=== PATIENT | female | born 1990 | race Caucasian/White ===

== ENCOUNTER 2016-08-13 16:30 | Outpatient (CLI) | payer MEDICAID ==
[~2016-08-13] VITALS: Ht 170.2 cm; Wt 102.5 kg
[~2016-08-13 16:30] MED LIST: AC500T PO; ACET-2222 PO; ALPR1TAB PO; AMOX500C2 PO; AZIT-21 PO; CODE-54 PO; CYCL10TA9 PO; DCS100C PO; DESV50TA PO; DIPH25TA82 PO; FOLI-88 PO; FRS325T PO; GUAI240S10 PO; IBUP-1773 PO; MNTL10T; MONT4TAB5; MULT-241 PO; NAPR-243 PO; PREN1TAB71 PO; ZLP5T PO
[2016-08-13 16:42] VITALS: BP 112/66
[2016-08-13] MEDS ORDERED: antibiotic PO (18:49)
--- NOTE | 2016-08-14 08:03 | Physician Query-Final Dx ---
MICHELA GIRALDO 08/14/16 8:03am: Clinic Account Progress/Dx Physician Query: Please give diagnosis Date of Service Aug 13, 2016 at 16:30 WARREN JIMENEZ DO 08/14/16 5:38pm: Clinic Account Progress/Dx DIAGNOSIS: Diagnosis threatened labor at term (38 weeks) MICHELA GIRALDO Aug 14, 2016 8:03 am WARREN JIMENEZ DO Aug 14, 2016 5:38 pm
[2016-08-17] MEDS ORDERED: FERR-74 PO (08:31)
[2016-08-17] MEDS ORDERED: PNV1TABL67 PO (08:31)
[2016-08-17] MEDS ORDERED: ACET1TAB43 PO (08:31)
[2016-08-17] MEDS ORDERED: IBUP-1773 PO (08:31)
== END 2016-08-13 18:55 | disposition home or self-care (01) ==
LOC: LDRP 16:30 → WSo 16:30
PROVIDERS: ATTEND Obstetrics & Gynecology
DX: O47.1 False labor at or after 37 completed weeks of gestation (principal); Z3A.38 38 weeks gestation of pregnancy
CPT/HCPCS: 99213

== ENCOUNTER 2016-08-14 08:18 | Outpatient (CLI) | payer MEDICAID ==
[~2016-08-14] VITALS: Ht 170.2 cm; Wt 102.5 kg
[~2016-08-14 08:18] MED LIST changes: +antibiotic PO
[2016-08-14 08:29] VITALS: BP 116/71
--- NOTE | 2016-08-15 12:14 | Physician Query-Final Dx ---
SALINA VELASCO 08/15/16 1214: Clinic Account Progress/Dx Physician Query: Please give diagnosis Date of Service Aug 14, 2016 at 08:18 SHIRLEY HACKETT MD 08/16/16 1850: Clinic Account Progress/Dx DIAGNOSIS: Diagnosis False labor, third trimester SALINA VELASCO Aug 15, 2016 12:14 SHIRLEY HACKETT MD Aug 16, 2016 18:50
[2016-08-17] MEDS ORDERED: IBUP-1773 PO ×2 (08:31)
[2016-08-17] MEDS ORDERED: FERR-74 PO ×2 (08:31)
[2016-08-17] MEDS ORDERED: ACET1TAB43 PO ×2 (08:31)
[2016-08-17] MEDS ORDERED: PNV1TABL67 PO ×2 (08:31)
== END 2016-08-14 09:00 | disposition home or self-care (01) ==
LOC: LDRP 08:18 → WSo 08:18
PROVIDERS: ATTEND Obstetrics & Gynecology
DX: O47.1 False labor at or after 37 completed weeks of gestation (principal); Z3A.38 38 weeks gestation of pregnancy
CPT/HCPCS: 99213

== ENCOUNTER 2016-08-15 16:31 | Inpatient (IN) | payer MEDICAID ==
[~2016-08-15] VITALS: Ht 170.2 cm; Wt 101.6 kg
[2016-08-15 16:45] VITALS: BP 126/72
[2016-08-15 17:05] LABS: BILIRUBIN,URINE NEGATIVE (NEGATIVE); KETONES,URINE NEGATIVE (NEGATIVE); LEUKOCYTE ESTERASE ,URINE 2+ (NEGATIVE); NITRITE,URINE NEGATIVE (NEGATIVE); PH,URINE 6 (5-9); PROTEIN,URINE NEGATIVE (NEGATIVE); UROBILINOGEN,URINE NORMAL (NORMAL)
[2016-08-15 17:22] LABS: SQUAMOUS EPITHELIAL CELL,UR 25-50 /HPF
[2016-08-15] MEDS ORDERED: AMPICILLIN INJECTION 2,000 MG in NS (IVPB) 50 ML IV SCH (17:59)
[2016-08-15] MEDS ORDERED: MINERAL OIL CONCENTRATE 99.9% 15 ML UDC TOP PRN (18:00)
[2016-08-15] MEDS ORDERED: MISOPROSTOL 100 MCG (CYTOTEC) TAB ONE (18:24)
[2016-08-15] MEDS: D5 LR IV SOLUTION 1,000 ML IV SCH (18:42)
[2016-08-15] MEDS: MISOPROSTOL 100 MCG (CYTOTEC) TAB PO SCH ×2 (18:46→22:57)
[2016-08-15 19:03] LABS: BASOPHILS % (AUTO) 0 % (0-10); EOSINOPHILS # (AUTO) 0.1 10^3/uL (0.0-0.3); EOSINOPHILS % (AUTO) 1 % (0-10); LYMPHOCYTES # (AUTO) 2.9 X 10^3 (1.0-4.0); LYMPHOCYTES % (AUTO) 20 % (12-44); MEAN CORPUSCULAR HEMOGLOBIN 31 PG (25-34); MEAN CORPUSCULAR HGB CONC 35 G/DL (32-36); MEAN CORPUSCULAR VOLUME 90 FL (80-99); MEAN PLATELET VOLUME 11.6 FL (7.4-10.4); MONOCYTES # (AUTO) 0.8 X 10^3 (0.0-1.0); MONOCYTES % (AUTO) 6 % (0-12); NEUTROPHILS % (AUTO) 74 % (42-75); PLATELET COUNT 231 10^3/uL (130-400); RED BLOOD COUNT 4.24 10^6/uL (4.35-5.85); RED CELL DISTRIBUTION WIDTH 13.1 % (10.0-14.5); WHITE BLOOD COUNT 14.9 10^3/uL (4.3-11.0)
[2016-08-15 21:00] VITALS: BP 98/54
[2016-08-15] MEDS: CATHETER FLUSH 10 ML SYR IV SCH (22:00)
[2016-08-15] MEDS: AMPICILLIN INJECTION 1,000 MG in NS (IVPB) 50 ML IV SCH (22:55)
[2016-08-16] VITALS (50 sets, daily range): BP systolic 95–153; BP diastolic 50–86
[2016-08-16] MEDS: AMPICILLIN INJECTION 1,000 MG in NS (IVPB) 50 ML IV SCH ×4 (03:02→15:02)
[2016-08-16] MEDS: MISOPROSTOL 100 MCG (CYTOTEC) TAB PO SCH (03:03)
[2016-08-16] MEDS: D5 LR IV SOLUTION 1,000 ML IV SCH (04:11)
--- NOTE | 2016-08-16 04:14 | History & Physical-OB ---
OB - Chief Complaint & HPI Date Date of Admission: Date of Admission: Aug 15, 2016 at 5:28 pm Chief Complaint/History OB-Reason for Admission/Chief: Onset of Labor Hx : 5 Hx Para: 3 Expected Date of Delivery: Aug 22, 2016 Gestational Age in Weeks: 39 Other reason for admission: Prolonged latent phase labor Admission Nurse Assessment Rev: Yes History of Labs O pos Antibody neg RI RPR NR HBsAg NR HIV NR GC neg GBS + Allergies and Home Medications Allergies Coded Allergies: Sulfa (Sulfonamide Antibiotics) (Unverified Allergy, Mild, 09/24/08) Uncoded Allergies: NKDA (Allergy, Mild, 09/06/08) Home Medications [antibiotic] , MG PO QID, (Reported) OB - History Hx of Present Care: Yes (insufficent- lapse in care from approx 20 weeks to 34 weeks ) Ultrasounds: Normal mid trimester US Obstetrical Complications: None Medical Complications: None Obstetrical History Hx Termination: No Hx Multiple Gestation: No Hx Stillbirth: No Hx Complication: Yes (See record) Hx Induced Hypertens: No Hx Maternal Gestational Diabet: No Delivery History Hx Dystocia: No Hx Large For Gestational Age I: No Hx Small for Gestational Age I: No Hx Section: No Hx Vaginal Delivery Post C-Sec: No Hx Blood Disorders: No Patient Past Medical History Hx of marijuana use Social History/Family History Recent Infectious Disease Expo: No Alcohol Use: Denies Use Recreational Drug Use: No Immunizations Tetanus Booster (TDap): Less than 5yrs Date of Influenza Vaccine: Nov 14, 2010 OB - Admission Exam Physical Exam Vitals: Vital Signs 08/15/16 16:45 Temp 98.0 Pulse 93 Resp 18 B/P (MAP) 126/72 O2 Delivery Room Air HEENT: NCAT Heart: Rhythm Normal Lungs: Clear Abdomen: Gravid Extremities: Normal Reflexes: Normal Cervical Dilatation: 2cm Effacement: 75% Station: -1 Membranes: Intact Heart Rate: 130's Accelerations: Accelerations Present Decelerations: No Decelerations Short Term Variability: Present 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 Variability: Average (6-25) Contractions on Admission: 6-10 Minutes Apart Intensity: Moderate Labs Laboratory Tests Test 08/15/16 16:55 08/15/16 18:35 Range/Units Urine Color YELLOW Urine Clarity CLEAR Urine pH 6 5-9 Urine Specific [place] 1.025 H 1.016-1.022 Urine Protein NEGATIVE NEGATIVE Urine Glucose (UA) NEGATIVE NEGATIVE Urine Ketones NEGATIVE NEGATIVE Urine Nitrite NEGATIVE NEGATIVE Urine Bilirubin NEGATIVE NEGATIVE Urine Urobilinogen NORMAL NORMAL MG/DL Urine Leukocyte Esterase 2+ H NEGATIVE Urine RBC (Auto) NEGATIVE NEGATIVE Urine RBC NONE /HPF Urine WBC 10-25 H /HPF Urine Squamous Epithelial Cells 25-50 H /HPF Urine Crystals NONE /LPF Urine Bacteria FEW H /HPF Urine Casts NONE /LPF Urine Mucus MODERATE H /LPF Urine Culture Indicated YES White Blood Count 14.9 H 4.3-11.0 10^3/uL Red Blood Count 4.24 L 4.35-5.85 10^6/uL Hemoglobin 13.2 11.5-16.0 G/DL Hematocrit 38 35-52 % Mean Corpuscular Volume 90 80-99 FL Mean Corpuscular Hemoglobin 31 25-34 PG Mean Corpuscular Hemoglobin Concent 35 32-36 G/DL Red Cell Distribution Width 13.1 10.0-14.5 % Platelet Count 231 130-400 10^3/uL Mean Platelet Volume 11.6 H 7.4-10.4 FL Neutrophils (%) (Auto) 74 42-75 % Lymphocytes (%) (Auto) 20 12-44 % Monocytes (%) (Auto) 6 0-12 % Eosinophils (%) (Auto) 1 0-10 % Basophils (%) (Auto) 0 0-10 % Neutrophils # (Auto) 11.0 H 1.8-7.8 X 10^3 Lymphocytes # (Auto) 2.9 1.0-4.0 X 10^3 Monocytes # (Auto) 0.8 0.0-1.0 X 10^3 Eosinophils # (Auto) 0.1 0.0-0.3 10^3/uL Basophils # (Auto) 0.0 0.0-0.1 10^3/uL OB - Assessment/Plan/Diagnosis Assessment Assessment: other (Augmentation of labor) Plan Induction Method: per Misoprostol Protocol Other Plan Due to patient GBS status, hx of non compliance and 39 week status, labor augmentation started using misoprostol Discharge Diagnosis Diagnosis: 26 yo @ 39 weeks Insufficent PNC GBS pos Hx of non compliance Hx of Marijuana use JOSY ROBINS DO Aug 16, 2016 4:14 am
[2016-08-16] MEDS ORDERED: SUFENTA 0.6MCG/ML BUPIVA 0.125 100 ML ONE (10:23)
[2016-08-16] MEDS ORDERED: LACTATED RINGERS 1,000 ML IV ONE (10:23)
[2016-08-16] MEDS ORDERED: OXYTOCIN/NORMAL SALINE 500 ML IV ONE (10:23)
[2016-08-16] MEDS ORDERED: fentaNYL INJECTION 100 MCG/2 ML AMP ONE (10:44)
[2016-08-16] MEDS ORDERED: BUPIVACAINE 0.25% 30 ML (SENSORCAINE) VIAL ONE (10:44)
[2016-08-16] MEDS ORDERED: OXYTOCIN/NORMAL SALINE 500 ML IV SCH ×2 (11:55→18:27)
[2016-08-16] MEDS ORDERED: WITCH HAZEL(TUCKS) 40 EA JAR TOP PRN (18:30)
[2016-08-16] MEDS ORDERED: DIBUCAINE (NUPERCAINAL) 1% OINT 30 GM TOP PRN (18:30)
[2016-08-16] MEDS ORDERED: BENZOCAINE/MENTHOL (DERMOPLAST) 56 ML CAN TP PRN (18:30)
[2016-08-16] MEDS ORDERED: TETANUS,DIPTH,PERTUSS P/F (BOOSTRIX) 0.5 ML VIAL IM ONE (18:30)
[2016-08-16] MEDS ORDERED: MEASLES,MUMPS,RUBELLA 1 EA INJ SQ ONE (18:30)
--- NOTE | 2016-08-16 18:48 | OB Labor & Delivery Record ---
L&D History Date of Service Date of Service: Aug 16, 2016 History Expected Date of Delivery: Aug 22, 2016 Gestational Age in Weeks: 39 Hx : 5 Hx Para: 3 Complications Events: Routine care insufficient care Operative Indications (Cesarea: N/A-Vaginal Delivery Intrapartal Events: None L&D Stage1 Monitors and Tracing Monitor Mode: External Heart Rate: 135 Station: -1 Vital Signs VS - Last 72 Hours, by Label 08/15/16 08/15/16 08/16/16 08/16/16 16:45 21:00 01:00 03:10 Temp 98.0 97.8 98.0 Pulse 93 69 71 73 Resp 18 16 B/P (MAP) 126/72 98/54 102/59 116/74 O2 Delivery Room Air Room Air 08/16/16 08/16/16 08/16/16 08/16/16 07:40 08:40 09:40 10:45 Temp 97.5 Pulse 64 65 68 65 Resp 18 18 18 18 B/P (MAP) 113/57 117/69 115/70 123/76 O2 Delivery Room Air Room Air Room Air Room Air 08/16/16 08/16/16 08/16/16 08/16/16 11:00 11:05 11:10 11:15 Pulse 78 113 78 73 Resp 18 20 20 20 B/P (MAP) 142/72 149/86 153/84 116/77 Pulse Ox 99 96 99 99 O2 Delivery Room Air Room Air Room Air Room Air 08/16/16 08/16/16 08/16/16 08/16/16 11:20 11:25 11:25 11:30 Temp 97.4 Pulse 72 78 90 68 Resp 20 20 20 18 B/P (MAP) 126/58 110/60 111/57 112/59 Pulse Ox 100 100 99 97 O2 Delivery Room Air Room Air Room Air Room Air 08/16/16 08/16/16 08/16/16 08/16/16 11:35 11:40 11:45 11:46 Pulse 72 68 70 74 Resp 20 20 20 20 B/P (MAP) 108/51 116/64 111/68 111/70 Pulse Ox 98 97 99 98 O2 Delivery Room Air Room Air Room Air Room Air 08/16/16 08/16/16 08/16/16 08/16/16 12:00 12:15 12:30 12:45 Pulse 70 62 64 68 Resp 18 18 18 18 B/P (MAP) 112/70 113/66 110/72 110/63 Pulse Ox 99 98 99 99 O2 Delivery Room Air Room Air Room Air Room Air 08/16/16 08/16/16 08/16/16 08/16/16 13:00 13:15 13:30 13:45 Temp 97.0 Pulse 67 74 60 63 Resp 18 18 18 18 B/P (MAP) 108/61 112/83 108/66 108/69 Pulse Ox 99 98 98 98 O2 Delivery Room Air Room Air Room Air Room Air 08/16/16 08/16/16 08/16/16 08/16/16 14:15 14:30 14:45 15:00 Temp 97.6 Pulse 96 80 62 69 Resp 18 18 18 18 B/P (MAP) 110/67 104/72 112/68 107/64 O2 Delivery Room Air Room Air Room Air Room Air 08/16/16 08/16/16 08/16/16 08/16/16 15:15 15:30 15:45 16:00 Pulse 69 68 72 72 Resp 18 18 18 18 B/P (MAP) 108/67 115/59 124/72 120/66 Pulse Ox 98 99 97 O2 Delivery Room Air Room Air Room Air Room Air 08/16/16 08/16/16 08/16/16 08/16/16 16:15 16:30 16:45 17:00 Temp 97.2 Pulse 68 66 74 75 Resp 18 18 18 18 B/P (MAP) 105/65 108/65 117/52 102/57 Pulse Ox 98 98 97 97 O2 Delivery Room Air Room Air Room Air Room Air 08/16/16 08/16/16 08/16/16 08/16/16 17:15 17:30 17:45 18:00 Pulse 75 73 74 77 Resp 18 18 18 18 B/P (MAP) 95/50 101/55 104/58 102/55 Pulse Ox 98 98 98 99 O2 Delivery Room Air Room Air Room Air Room Air Rupture of Membranes Amniotic Membrane Rupture Time: 0720 Amniotic Membrane Fluid Desc.: Clear Vaginal Bleeding Description: Normal Show Induction/Anesthesia Epidural Cath Placement - Time: 1110 L&D Stage2 Stage Two Stage II Date: Aug 16, 2016 Monitors and Tracing Monitor Mode: External Heart Rate: 135 Short Term Variability: Present Position: Right Occiput Anterior Presentation: Vertex Cord Descript/Complications Cord Vessel Description: 3 Vessels Complications nuchal cord x 1 Delivery Type Delivery Method: Spontaneous Vaginal Anterior Shoulder: Right Episiotomy/Perineal Laceration Laceraction(s)/Extensions: No Condition of Delivery 1 minute Comment: 8 5 minute Comment: 9 Notes female , weight pending Condition of Infant Condition of : Living Exam: No Observed Abnormalities Resuscitation Resuscitation: N/A - Spontaneous Resp L&D Stage3 Stage Three Stage III Date: Aug 16, 2016 Pictocin Pitocin Administration mu/min: 12 Pitocin ml/hr: 12 Pitocin Administration Comment: 1700 pitocin increased Placenta Delivery Placenta Delivery: Spontaneous Delivery Summary Summary blood loss >1000ml: No Vaginal blood loss >500ml: No 250 Attending at delivery: Josy Robins DO Condition of Delivery Examined: Cervix Examined, Uterus Explored Post Hemorrhage: No Condition of Mother stable Condition of Infant (s) stable JOSY ROBINS DO Aug 16, 2016 18:47
[2016-08-16] MEDS: IBUPROFEN 600 MG (MOTRIN) TAB PO SCH (22:11)
[2016-08-17 00:04] VITALS: BP 92/58
[2016-08-17] MEDS: IBUPROFEN 600 MG (MOTRIN) TAB PO SCH ×4 (04:12→23:49)
[2016-08-17 04:13] VITALS: BP 101/62
[2016-08-17] MEDS: CATHETER FLUSH 10 ML SYR IV SCH ×5 (06:00→22:00)
[2016-08-17 06:24] LABS: BASOPHILS % (AUTO) 0 % (0-10); EOSINOPHILS # (AUTO) 0.2 10^3/uL (0.0-0.3); EOSINOPHILS % (AUTO) 1 % (0-10); LYMPHOCYTES % (AUTO) 24 % (12-44); MEAN CORPUSCULAR HEMOGLOBIN 31 PG (25-34); MEAN CORPUSCULAR HGB CONC 34 G/DL (32-36); MEAN CORPUSCULAR VOLUME 92 FL (80-99); MEAN PLATELET VOLUME 11.7 FL (7.4-10.4); MONOCYTES # (AUTO) 0.8 X 10^3 (0.0-1.0); MONOCYTES % (AUTO) 7 % (0-12); NEUTROPHILS # (AUTO) 8.2 X 10^3 (1.8-7.8); NEUTROPHILS % (AUTO) 67 % (42-75); PLATELET COUNT 209 10^3/uL (130-400); RED BLOOD COUNT 3.91 10^6/uL (4.35-5.85); RED CELL DISTRIBUTION WIDTH 13.2 % (10.0-14.5); WHITE BLOOD COUNT 12.2 10^3/uL (4.3-11.0)
[2016-08-17] MEDS: FERROUS SULF 325 MG (IRON) TAB PO SCH (06:55)
[2016-08-17] MEDS: APAP 300 MG/CODEINE 30 MG (TYLENOL #3) TAB PO PRN ×4 (06:56→21:53)
[2016-08-17] MEDS ORDERED: PRENATAL VITAMIN 1 EA TAB PO SCH (07:00)
--- NOTE | 2016-08-17 08:22 | Progress Note-Standard ---
Standard Progress Note Progress Notes/Assess & Plan Progress/Assessment & Plan Patient doing well PPD 1 NVD. Reports good pain control. Ambulating and voiding freely. Lochia light Vital Sign - Last 24 Hours 08/16/16 08/16/16 08/16/16 08/16/16 08:40 09:40 10:45 11:00 Pulse 65 68 65 78 Resp 18 18 18 18 B/P (MAP) 117/69 115/70 123/76 142/72 Pulse Ox 99 O2 Delivery Room Air Room Air Room Air Room Air 08/16/16 08/16/16 08/16/16 08/16/16 11:05 11:10 11:15 11:20 Pulse 113 78 73 72 Resp 20 20 20 20 B/P (MAP) 149/86 153/84 116/77 126/58 Pulse Ox 96 99 99 100 O2 Delivery Room Air Room Air Room Air Room Air 08/16/16 08/16/16 08/16/16 08/16/16 11:25 11:25 11:30 11:35 Temp 97.4 Pulse 78 90 68 72 Resp 20 20 18 20 B/P (MAP) 110/60 111/57 112/59 108/51 Pulse Ox 100 99 97 98 O2 Delivery Room Air Room Air Room Air Room Air 08/16/16 08/16/16 08/16/16 08/16/16 11:40 11:45 11:46 12:00 Pulse 68 70 74 70 Resp 20 20 20 18 B/P (MAP) 116/64 111/68 111/70 112/70 Pulse Ox 97 99 98 99 O2 Delivery Room Air Room Air Room Air Room Air 08/16/16 08/16/16 08/16/16 08/16/16 12:15 12:30 12:45 13:00 Pulse 62 64 68 67 Resp 18 18 18 18 B/P (MAP) 113/66 110/72 110/63 108/61 Pulse Ox 98 99 99 99 O2 Delivery Room Air Room Air Room Air Room Air 08/16/16 08/16/16 08/16/16 08/16/16 13:15 13:30 13:45 14:15 Temp 97.0 Pulse 74 60 63 96 Resp 18 18 18 18 B/P (MAP) 112/83 108/66 108/69 110/67 Pulse Ox 98 98 98 O2 Delivery Room Air Room Air Room Air Room Air 08/16/16 08/16/16 08/16/16 08/16/16 14:30 14:45 15:00 15:15 Temp 97.6 Pulse 80 62 69 69 Resp 18 18 18 18 B/P (MAP) 104/72 112/68 107/64 108/67 O2 Delivery Room Air Room Air Room Air Room Air 08/16/16 08/16/16 08/16/16 08/16/16 15:30 15:45 16:00 16:15 Pulse 68 72 72 68 Resp 18 18 18 18 B/P (MAP) 115/59 124/72 120/66 105/65 Pulse Ox 98 99 97 98 O2 Delivery Room Air Room Air Room Air Room Air 08/16/16 08/16/16 08/16/16 08/16/16 16:30 16:45 17:00 17:15 Temp 97.2 Pulse 66 74 75 75 Resp 18 18 18 18 B/P (MAP) 108/65 117/52 102/57 95/50 Pulse Ox 98 97 97 98 O2 Delivery Room Air Room Air Room Air Room Air 08/16/16 08/16/16 08/16/16 08/16/16 17:30 17:45 18:00 18:15 Pulse 73 74 77 85 Resp 18 18 18 18 B/P (MAP) 101/55 104/58 102/55 112/60 Pulse Ox 98 98 99 100 O2 Delivery Room Air Room Air Room Air Room Air 08/16/16 08/16/16 08/16/16 08/16/16 18:30 18:38 18:48 19:00 Temp 96.7 Pulse 78 82 90 Resp 18 18 18 B/P (MAP) 123/65 123/68 96/52 Pulse Ox 96 O2 Delivery Room Air Room Air Room Air Room Air 08/16/16 08/16/16 08/16/16 08/16/16 19:15 19:30 19:45 20:00 Temp 97.1 Pulse 78 69 86 77 Resp 18 18 18 18 B/P (MAP) 115/69 114/68 123/77 122/75 O2 Delivery Room Air Room Air Room Air Room Air 08/16/16 08/17/16 08/17/16 20:39 00:04 04:13 Temp 98.2 98.5 Pulse 72 62 69 Resp 18 18 18 B/P (MAP) 115/66 92/58 101/62 Pulse Ox 98 96 O2 Delivery Room Air Room Air Room Air Intake and Output 08/16/16 08/16/16 08/17/16 15:00 23:00 07:00 Intake Total 1850 ml 500 ml Balance 1850 ml 500 ml Laboratory Tests Test 08/17/16 06:07 Range/Units White Blood Count 12.2 H 4.3-11.0 10^3/uL Red Blood Count 3.91 L 4.35-5.85 10^6/uL Hemoglobin 12.2 11.5-16.0 G/DL Hematocrit 36 35-52 % Mean Corpuscular Volume 92 80-99 FL Mean Corpuscular Hemoglobin 31 25-34 PG Mean Corpuscular Hemoglobin Concent 34 32-36 G/DL Red Cell Distribution Width 13.2 10.0-14.5 % Platelet Count 209 130-400 10^3/uL Mean Platelet Volume 11.7 H 7.4-10.4 FL Neutrophils (%) (Auto) 67 42-75 % Lymphocytes (%) (Auto) 24 12-44 % Monocytes (%) (Auto) 7 0-12 % Eosinophils (%) (Auto) 1 0-10 % Basophils (%) (Auto) 0 0-10 % Neutrophils # (Auto) 8.2 H 1.8-7.8 X 10^3 Lymphocytes # (Auto) 3.0 1.0-4.0 X 10^3 Monocytes # (Auto) 0.8 0.0-1.0 X 10^3 Eosinophils # (Auto) 0.2 0.0-0.3 10^3/uL Basophils # (Auto) 0.0 0.0-0.1 10^3/uL Uterine fundus firm and below umbilicus Diagnosis: PPD 1 NVD P: Continue routine PP care Anticipate dc tomorrow JOSY ROBINS DO Aug 17, 2016 8:22 am
[2016-08-17] MEDS ORDERED: IBUP-1773 PO ×2 (08:31)
[2016-08-17] MEDS ORDERED: PNV1TABL67 PO ×2 (08:31)
[2016-08-17] MEDS ORDERED: FERR-74 PO ×2 (08:31)
[2016-08-17] MEDS ORDERED: ACET1TAB43 PO ×2 (08:31)
--- NOTE | 2016-08-17 08:32 | Discharge Inst-Women's Service ---
Discharge Inst-Women's Serv Consults/Follow Up Additional Follow Up: Yes Orders/Referrals Dr. Robins in 6 weeks Activity Activity: Activity as Tolerated Driving Instructions: No Driving for 1 Week NO SMOKING: NO SMOKING Nothing Inside Vagina: No Douching, No [place], No Tampons Diet Discharge Diet: No Restrictions Symptoms to Report to : Bleeding Excessive, Pain Increased, Fever Over 101 Degrees F, Vaginal Bleeding Increase, Questions/Concerns For Any Problems or Questions: Contact Your Physician Skin/Wound Care Bathing Instructions: Shower (x 2 weeks) JOSY ROBINS DO Aug 17, 2016 8:32 am
[2016-08-17 11:41] VITALS: BP 113/66
[2016-08-17 16:13] VITALS: BP 121/70
[2016-08-17 21:54] VITALS: BP 104/65
[2016-08-18 04:04] VITALS: BP 101/63
[2016-08-18] MEDS: APAP 300 MG/CODEINE 30 MG (TYLENOL #3) TAB PO PRN ×2 (04:57→09:10)
[2016-08-18] MEDS: CATHETER FLUSH 10 ML SYR IV SCH ×2 (06:00)
[2016-08-18] MEDS: IBUPROFEN 600 MG (MOTRIN) TAB PO SCH (06:04)
[2016-08-18 08:17] VITALS: BP 119/76
[2016-08-18] MEDS: FERROUS SULF 325 MG (IRON) TAB PO SCH (08:19)
--- NOTE | 2016-08-18 08:31 | Progress Note-Standard ---
Standard Progress Note Progress Notes/Assess & Plan Progress/Assessment & Plan Patient doing well PPD 2 NVD. Reports good pain control. Ambulating and voiding freely. Lochia light Vital Sign - Last 24 Hours 08/17/16 08/17/16 08/17/16 08/18/16 11:41 16:13 21:54 04:04 Temp 97.3 98.6 98.0 97.0 Pulse 81 67 62 60 Resp 18 18 18 18 B/P (MAP) 113/66 121/70 104/65 101/63 Pulse Ox 99 97 98 98 O2 Delivery Room Air Room Air Room Air Room Air 08/18/16 08:17 Temp 97.7 Pulse 67 Resp 18 B/P (MAP) 119/76 Pulse Ox 100 O2 Delivery Room Air Intake and Output 08/17/16 08/17/16 08/18/16 15:00 23:00 07:00 Intake Total 500 ml 800 ml Balance 500 ml 800 ml Uterine fundus firm and below umbilicus Diagnosis: PPD 2 NVD P: Continue routine PP care Anticipate dc today JOSY ROBINS DO Aug 18, 2016 8:31 am
--- OUTSIDE RECORDS SUMMARY | 2016-09-16 00:06 | XMS REPORT ---
Author REGGIE Dejesus [facility] eClinicalWorks Address Unknown Phone Unavailable Care Team Providers Care Filleter Name Role Phone REGGIE ART CP Unavailable Allergies, Adverse Reactions, Alerts Substance Reaction Event Type Sulfa drugs Info Not Available Non Drug Allergy Problems Problem Type Condition Code Onset Dates Condition Status Assessment Dental examination Z01.20 Active Medications Medication Code System Code Instructions Start Date End Date Status Dosage Amoxicillin [facility] [address]-14 500 MG Orally 4 times daily 1 capsule Tylenol/Codeine #3 [facility] [address]-39 300-30 MG Orally every 6 hrs 1 tablet as needed Procedures Procedure Coding System Code Date INTRAORL-PERIAPICAL 1 FILM 30754 CPT-4 D0220 Jan 29, 2016 BITEWING - SINGLE FILM CPT-4 D0270 Jan 29, 2016 LTD ORAL EVALUATION - PROBLEM FOCUS CPT-4 D0140 Jan 29, 2016 Vital Signs Date/Time: Jan 29, 2016 Blood Pressure Diastolic 82 mmHg Blood Pressure Systolic 121 mmHg Height 66.75 in Results No Known Results Summary Purpose eClinicalWorks Submission
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
--- OUTSIDE RECORDS SUMMARY | 2016-09-16 00:07 | XMS REPORT ---
Author REGGIE Dejesus [facility] eClinical[employer] Address Unknown Phone Unavailable Care Team Providers Care Carton Forming Machine Tender Name Role Phone REGGIE ART CP Unavailable Allergies, Adverse Reactions, Alerts Substance Reaction Event Type Sulfa drugs Info Not Available Non Drug Allergy Problems Problem Type Condition Code Onset Dates Condition Status Assessment Dental caries K02.9 Active Medications No Known Medications Procedures Procedure Coding System Code Date EXTRAC ERUPTED TOOTH/EXPOSED ROOT CPT-4 D7140 Feb 07, 2016 EXTRAC ERUPTED TOOTH/EXPOSED ROOT CPT-4 D7140 Feb 07, 2016 Vital Signs Date/Time: Feb 07, 2016 Blood Pressure Diastolic 69 mmHg Blood Pressure Systolic 114 mmHg Height 66.75 in Results No Known Results Summary Purpose eClinicalWorks Submission
== END 2016-08-18 11:05 | disposition home or self-care (01) | DRG 775 ==
LOC: LDRP 16:31 → WSo 16:31 → LDRP 17:28 → WSo 17:28 → LDRP 08-16 22:25
PROVIDERS: ADMIT Obstetrics & Gynecology; ATTEND Obstetrics & Gynecology
PROC: 10E0XZZ Delivery of Products of Conception, External Approach (ICD-10-PCS; principal; 2016-08-16)
DX: O99.824 Streptococcus B carrier state complicating childbirth (principal); Z91.19 Patient's noncompliance with other medical treatment and regimen; Z3A.39 39 weeks gestation of pregnancy; Z37.0 Single live birth
CPT/HCPCS: 36415; 81000; 85025; 86850; 86900; 86901; 87088; 99212

== ENCOUNTER 2016-08-21 16:15 | Emergency (ER) | payer MEDICAID ==
[~2016-08-21] VITALS: Ht 170.2 cm; Wt 101.6 kg
[~2016-08-21 16:15] MED LIST changes: +ACET1TAB43 PO; +FERR-74 PO; +PNV1TABL67 PO
--- NOTE | 2016-08-21 16:59 | ED Lower Extremity ---
General Stated Complaint: FEET SWELLING Source: patient Exam Limitations: no limitations History of Present Illness Time seen by provider: 16:56 Initial Comments To ER with bilateral lower extremity swelling right greater than left for 3 days. She is 5 days post uncomplicated vaginal delivery. She has no chest pain or shortness of breath or palpitations. She is multiparous. The right foot is slightly more swollen than the left but significantly more painful to walk on the left. She states that she had some minimal swelling at the time of discharge from the hospital but it resolved. Preceding that point she had no swelling of any point during her . She denies any high blood pressure , headaches or fevers. Onset: just prior to arrival Severity: moderate Method of Injury: unknown Modifying Factors: Worse With Movement Allergies and Home Medications Allergies Coded Allergies: Sulfa (Sulfonamide Antibiotics) (Unverified Allergy, Mild, 09/24/08) Home Medications Acetaminophen with Codeine 1 Each Tablet, 1-2 TAB PO Q4H PRN for Pain-See Instructions, #50 Prescribed by: JOSY ROBINS on 08/17/16830 Ferrous Sulfate 325 Mg Tablet, 325 MG PO DAILY@0700, #60 Prescribed by: JOSY ROBINS on 08/17/16830 Ibuprofen 600 Mg Tablet, 600 MG PO Q6H, #80 Prescribed by: JOSY ROBINS on 08/17/16830 Pnv with Ca,No.72/Iron/FA 1 Each Tablet, 1 EA PO DAILY@0700, #30 Prescribed by: JOSY ROBINS on 08/17/16830 [antibiotic] , MG PO QID, (Reported) Constitutional: see HPI EENTM: see HPI Respiratory: no symptoms reported Cardiovascular: no symptoms reported Genitourinary: see HPI Musculoskeletal: see HPI Skin: no symptoms reported Psychiatric/Neurological: No Symptoms Reported Past Lrxnyjw-Egmije-Rkuhgw Hx Patient Social History Type Used: Cigarettes Recent Foreign Travel: No Contact w/Someone Who Travel: No Recent Hopitalizations: No Immunizations Up To Date Tetanus Booster (TDap): Less than 5yrs Date of Influenza Vaccine: Nov 14, 2010 Surgeries HX Surgeries: No Respiratory Hx Respiratory Disorders: No Cardiovascular Hx Cardiac Disorders: No Neurological Hx Neurological Disorders: No Reproductive System Hx Reproductive Disorders: No Genitourinary Hx Genitourinary Disorders: No Gastrointestinal Hx Gastrointestinal Disorders: No Musculoskeletal Hx Musculoskeletal Disorders: No Musculoskeletal Disorders: Chronic Back Pain Endocrine Hx Endocrine Disorders: No HEENT HX ENT Disorders: No Cancer Hx Cancer: No Psychosocial Hx Psychiatric Problems: Yes Behavioral Health Disorders: Anxiety, Depression Integumentary HX Skin/Integumentary Disorder: No Blood Transfusions Hx Blood Disorders: No Family Medical History Significant Family History: No Pertinent Family Hx Family Medial History: Alcoholism 03 MOTHER Cancer 03 MOTHER (Mother, mother's sister, and grandmother all had cervical cancern, great grandmother had breast CA) Cataract 03 MOTHER (PGM) Dementia 03 FATHER (PGM) Family history: Alzheimer's disease 03 FATHER (PGM) Family history: Arthritis 03 MOTHER (PGM) Family history: Asthma Family history: Breast disease Family history: Hypertension 03 MOTHER (PGM) Family history: Osteoporosis Headache 03 MOTHER (Migraines) Hypercholesterolemia 03 MOTHER (PGM) Psychotic disorder 03 MOTHER Tuberculosis 03 MOTHER (PGM) No Family History of: Abdominal aortic aneurysm [place]'s disease Aphasia Cancer of colon Chest pain Congenital heart disease Congestive heart failure Cystic fibrosis Dysphagia Family history: Allergy Family history: Cardiovascular disease Family history: Coronary thrombosis Family history: Diabetes mellitus Family history: Gastrointestinal disease Family history: Glaucoma Family history: Thyroid disorder Hearing loss Heart disease Hereditary disease History of - anemia History of - disorder History of - respiratory disease History of drug abuse Human immunodeficiency virus (HIV) seropositivity Infertile Kidney disease Malignant neoplasm of lung Myocardial infarction Parkinson's disease Prostate cancer Seizure disorder Stroke Visual impairment Physical Exam Vital Signs Vital Sign - Last 12Hours 08/21/16 16:50 Temp 98.5 Pulse 58 Resp 20 B/P (MAP) 141/88 Pulse Ox 98 O2 Delivery Room Air Capillary Refill : General Appearance: WD/WN, no apparent distress, other (M Marcial to room 9 drinking a cup of coffee, speaks in full sentences no distress of any sort. Denies any respiratory or chest symptoms such as palpitations shortness of breath or orthopnea.) HEENT: PERRL/EOMI, normal ENT inspection Neck: non-tender, full range of motion Respiratory: no respiratory distress, no accessory muscle use Gastrointestinal: non tender, soft Hips: bilateral hip non-tender, bilateral hip normal inspection, bilateral hip normal range of motion Legs: bilateral leg non-tender, bilateral leg normal inspection, bilateral leg normal range of motion Knees: bilateral knee non-tender, bilateral knee normal inspection, bilateral knee normal range of motion Ankles: bilateral ankle normal range of motion, bilateral ankle no evidence of injury, right ankle other (there is bilateral lower extremity swelling 2+ nonpitting edema) Feet: bilateral foot non-tender, bilateral foot normal inspection, bilateral foot normal range of motion Neurologic/Psychiatric: alert, normal mood/affect, oriented x 3 Skin: normal color, warm/dry Progress/Results/Core Measures Results/Orders Lab Results Laboratory Tests Test 08/21/16 17:05 Range/Units White Blood Count 6.4 4.3-11.0 10^3/uL Red Blood Count 4.00 L 4.35-5.85 10^6/uL Hemoglobin 12.1 11.5-16.0 G/DL Hematocrit 37 35-52 % Mean Corpuscular Volume 93 80-99 FL Mean Corpuscular Hemoglobin 30 25-34 PG Mean Corpuscular Hemoglobin Concent 33 32-36 G/DL Red Cell Distribution Width 12.7 10.0-14.5 % Platelet Count 249 130-400 10^3/uL Mean Platelet Volume 11.1 H 7.4-10.4 FL Neutrophils (%) (Auto) 45 42-75 % Lymphocytes (%) (Auto) 44 12-44 % Monocytes (%) (Auto) 8 0-12 % Eosinophils (%) (Auto) 3 0-10 % Basophils (%) (Auto) 1 0-10 % Neutrophils # (Auto) 2.9 1.8-7.8 X 10^3 Lymphocytes # (Auto) 2.8 1.0-4.0 X 10^3 Monocytes # (Auto) 0.5 0.0-1.0 X 10^3 Eosinophils # (Auto) 0.2 0.0-0.3 10^3/uL Basophils # (Auto) 0.0 0.0-0.1 10^3/uL Sodium Level 142 135-145 MMOL/L Potassium Level 3.8 3.6-5.0 MMOL/L Chloride Level 110 H 98-107 MMOL/L Carbon Dioxide Level 22 21-32 MMOL/L Anion Gap 10 5-14 MMOL/L Blood Urea Nitrogen 12 7-18 MG/DL Creatinine 0.65 0.60-1.30 MG/DL Estimat Glomerular Filtration Rate > 60 BUN/Creatinine Ratio 18 Glucose Level 80 70-105 MG/DL Calcium Level 8.5 8.5-10.1 MG/DL Total Bilirubin 0.3 0.1-1.0 MG/DL Aspartate Amino Transf (AST/SGOT) 18 5-34 U/L Alanine Aminotransferase (ALT/SGPT) 26 0-55 U/L Alkaline Phosphatase 88 40-136 U/L B-Type Natriuretic Peptide 117.4 H <100.0 PG/ML Total Protein 6.2 L 6.4-8.2 G/DL Albumin 3.2 3.2-4.5 G/DL Thyroid Stimulating Hormone (TSH) 2.88 0.35-4.94 UIU/ML My Orders Orders - CHLOE CLEMENTE APRN Cbc With Automated Diff (08/21/16 16:55) BNP (08/21/16 16:55) Comprehensive Metabolic Panel (08/21/16 16:55) Ua Culture If Indicated (08/21/16 16:55) Thyroid Stimulating Hormone (08/21/16 16:55) Us Venous Lower Ext Rt (08/21/16 16:55) Vital Signs/I&O Vital Sign - Last 12Hours 08/21/16 16:50 Temp 98.5 Pulse 58 Resp 20 B/P (MAP) 141/88 Pulse Ox 98 O2 Delivery Room Air Departure Impression Impression: Primary Impression: edema Disposition: HOME, SELF-CARE Condition: Stable Departure-Patient Inst. Decision time for Depature: 18:03 Referrals: JOSY ROBINS DO (PCP) Primary Care Physician BÁRBARA GRIFFITHS MD (Family) Primary Care Physician Patient Instructions: Dependent Edema (DC) Add. Discharge Instructions: 1. Wear the compression stockings as directed during the day taking them off at night while lying flat in bed and keep legs elevated as much as possible 2. Follow-up with your regular doctor later this week or next week for recheck 3. Return to ER for any chest pain shortness of breath, worsening swelling or other concerns. Scripts Furosemide (Lasix) 20 Mg Tablet 20 MG PO ONCE, #1 TAB Prov: CHLOE CLEMENTE APRN 08/21/16 Copy Copies To 1: JOSY ROBINS PETER J APRN Aug 21, 2016 16:58
[2016-08-21 17:27] LABS: BASOPHILS % (AUTO) 1 % (0-10); EOSINOPHILS # (AUTO) 0.2 10^3/uL (0.0-0.3); EOSINOPHILS % (AUTO) 3 % (0-10); LYMPHOCYTES # (AUTO) 2.8 X 10^3 (1.0-4.0); LYMPHOCYTES % (AUTO) 44 % (12-44); MEAN CORPUSCULAR HEMOGLOBIN 30 PG (25-34); MEAN CORPUSCULAR HGB CONC 33 G/DL (32-36); MEAN CORPUSCULAR VOLUME 93 FL (80-99); MEAN PLATELET VOLUME 11.1 FL (7.4-10.4); MONOCYTES # (AUTO) 0.5 X 10^3 (0.0-1.0); MONOCYTES % (AUTO) 8 % (0-12); NEUTROPHILS # (AUTO) 2.9 X 10^3 (1.8-7.8); NEUTROPHILS % (AUTO) 45 % (42-75); PLATELET COUNT 249 10^3/uL (130-400); RED CELL DISTRIBUTION WIDTH 12.7 % (10.0-14.5); WHITE BLOOD COUNT 6.4 10^3/uL (4.3-11.0)
[2016-08-21 17:38] LABS: ALANINE AMINOTRANSFERASE 26 U/L (0-55); ALBUMIN 3.2 G/DL (3.2-4.5); ANION GAP 10 MMOL/L (5-14); ASPARTATE AMINO TRANSFERASE 18 U/L (5-34); BILIRUBIN,TOTAL 0.3 MG/DL (0.1-1.0); BLOOD UREA NITROGEN 12 MG/DL (7-18); BUN/CREATININE RATIO 18; CALCIUM 8.5 MG/DL (8.5-10.1); CARBON DIOXIDE 22 MMOL/L (21-32); CHLORIDE 110 MMOL/L (98-107); CREATININE SERUM 0.65 MG/DL (0.60-1.30); GFR ESTIMATED > 60; GLUCOSE 80 MG/DL (70-105); POTASSIUM 3.8 MMOL/L (3.6-5.0); SODIUM 142 MMOL/L (135-145); TOTAL PROTEIN 6.2 G/DL (6.4-8.2)
--- NOTE | 2016-08-21 17:52 | Diagnostic Imaging Report ---
INDICATION: Right leg pain. Right leg venous Doppler study was performed in the routine fashion with color flow Doppler and waveform analysis. FINDINGS: The right common femoral vein, superficial femoral vein, popliteal vein and visualized portion of the tibial veins show normal compressibility and venous flow patterns. There is normal augmentation. IMPRESSION: No evidence of deep vein thrombosis of the major veins of the right leg. Dictated by: Dictated on workstation # [id number]
[2016-08-21 17:58] LABS: THYROID STIMULATING HORMONE 2.88 UIU/ML (0.35-4.94)
[2016-08-21] MEDS ORDERED: FURO-125 PO (18:08)
[2016-08-21] MEDS ORDERED: FUROSEMIDE 20 MG (LASIX) TAB PO ONE (18:15)
[2016-08-21 18:20] VITALS: BP 141/88
== END 2016-08-21 18:20 | disposition home or self-care (01) ==
LOC: EDUNIT# 16:15 → ER 16:18
DX: R60.0 Localized edema (principal)
CPT/HCPCS: 36415; 80053; 83880; 84443; 85025; 99283

== ENCOUNTER 2017-11-28 11:15 | Emergency (ER) | payer MEDICAID ==
[~2017-11-28 11:15] MED LIST changes: -FERR-74 PO; +FERR325T18 PO; +FURO-125 PO
--- OUTSIDE RECORDS SUMMARY | 2017-11-28 11:22 | XMS REPORT | Clinical Summary ---
Author Author [facility] Organization [facility] Address Unknown Phone Unavailable Care Team Providers Care Food And Beverage Coordinator Name Role Phone PP Unavailable Allergies Active Allergy Reactions Severity Noted Date Comments Sulfa Antibiotics Swelling 11/23/2011 Current Medications Prescription Sig. Disp. Refills Start End Date Status Date alprazolam (XANAX) 1 MG Take 1 mg by mouth 3 Active tablet (three) times daily as needed. PARoxetine HCl (PAXIL PO) Take by mouth. Active medroxyPROGESTERone Inject 150 mg into the Active (DEPO-PROVERA) 150 MG/ML muscle every 3 (three) injection months. Active Problems Not on file Social History Tobacco Use Types Packs/Day Years Used Date Current Every Day Smoker 0.5 Tobacco Cessation: Ready to Quit: No Alcohol Use Drinks/Week oz/Week Comments No Sex Assigned at Date Recorded Not on file Last Filed Vital Signs Vital Sign Reading Time Taken Blood Pressure 119/74 11/23/2011 6:26 PM CDT Pulse 68 11/23/2011 6:26 PM CDT Temperature 36.5 C (97.7 F) 11/23/2011 2:49 PM CDT Respiratory Rate 14 11/23/2011 2:49 PM CDT Oxygen Saturation 100% 11/23/2011 6:26 PM CDT Inhaled Oxygen - - Concentration Weight 93 kg (205 lb) 11/23/2011 2:49 PM CDT Height - - Body Mass Index - - Plan of Treatment Health Maintenance Due Date Last Done Comments Varicella Vaccines (1 of 2003 2 - 2-dose adolescent series) DTaP,Tdap,and Td Vaccines 2009 (1 - Tdap) CERVICAL CANCER SCREENING 2011 Influenza Vaccine (#1) 2018 Results Not on filefrom Last 3 Months
--- OUTSIDE RECORDS SUMMARY | 2017-11-28 11:23 | XMS REPORT ---
Author Author PAYAM BRADFORD Organization [facility] Address [address] [place] [address] Care Team Providers Care Pneumatic System Conveyor Operator Name Role Phone SUZETTEUSMANPAYAM Unavailable PROBLEMS Unknown Problems ALLERGIES Substance Reaction Event Type Date Status Sulfa drugs Unknown Non Drug Allergy Mar, Active ENCOUNTERS Encounter Location Date Diagnosis [facility] [id number] [place] [address]90 [address]249 Mar, Viral gastroenteritis A08.4 [facility] [id number] [place] [address] 19864 [address]2784 Feb, Viral gastroenteritis A08.4 [address] [id number] [id number] Oct, Dental caries K02.[id number] [place] [address] [id number] 30 Sep, 2016 Dental examination Z01.20 [facility] [id number] [place] [address] 24136 -1331 11 May, 2016 Acute upper respiratory infection, unspecified J06.9 and Sore throat J02.9 [facility] [id number] [place] [address] 94[address]1572 13 Mar, 2016 Acute non-recurrent frontal sinusitis J01.10 [facility] [id number] [place] [address] 11208- 1686 28 Jan, 2016 Dental caries K02.9 [facility] [id number] [place] [address] 97461- 9821 19 Jan, 2016 Dental examination Z01.20 [facility] [id number] [place] [address]99- 4454 14 Aug, 2014 [facility] [address] [id number] [place] [address] Aug, [facility] [place] [facility] [address] [id number] [place] [address] 4966 Feb, [facility] [place] [facility] [address] [id number] [place] [address] 50[address] Feb, [facility] [place] [facility] [address] [id number] [place] [address] September, [facility] [place] [facility] [address] [id number] [place] [address] 0[address] Jul, [facility] [place] [facility] [address] [id number] [place] [address] Jul, [facility] [place] [facility] [address] [id number] [place] [address] 3710 Jun, [facility] [place] [facility] [address] [id number] [place] [address] 0899 Jun, [facility] [address] [id number] [place] [address] 77[address] May, [facility] [place] [facility] [address] [id number] [place] [address] 8510 May, [facility] [place] [facility] [address] [id number] [place] [address] Apr, [facility] [place] [facility] [address] [id number] [place] [address] 88[address] Apr, [facility] [place] [facility] [address] [id number] [place] [address] 4[address] Apr, [facility] [place] [facility] [address] [facility] [id number] [place] [address] 29[address] Apr, [facility] [place] [facility] [address] [facility] [id number] [place] [address] 8946 Apr, [facility] [place] [facility] [address] [id number] [place] [address] 2546 06 Apr, 2012 [facility] [address] [id number] [place] [address] 1136 Feb, [facility] [address] [id number] [place] [address] 2546 17 Jan, 2012 [facility] [address] [id number] [place] [address] 2546 04 Jan, 2012 [facility] [address] [id number] [place] [address] 2546 Nov, [facility] [address] [id number] [place] [address] 2546 Nov, [facility] [address] [id number] [place] [address] 2546 Oct, [facility] [address] [id number] [place] [address] 2546 Oct, [facility] [address] [id number] [place] [address] 9656 September, [facility] [address] [id number] [place] [address] 4[address] Aug, [facility] [address] [id number] [place] [address] 7336 Jul, [facility] [address] [id number] [place] [address] 2546 Jun, [facility] [address] [id number] [place] [address] 2546 Apr, [facility] [address] [id number] [place] [address] 2546 Apr, [facility] [address] [id number] [place] [address] 2546 Feb, [facility] [address] [id number] [place] [address]- 2546 Nov, [facility] [address] [facility] [id number] [place] [address] 3256 Jun, [facility] [address] [facility] [id number] [place] [address] 2546 Apr, [facility] [address] [facility] [id number] [place] [address] 6[address] Feb, IMMUNIZATIONS No Known Immunizations SOCIAL HISTORY Never Assessed REASON FOR VISIT N/V/D since 2229 last noc. [email or web address] PLAN OF CARE Activity Details Follow Up prn Reason: VITAL SIGNS Height 66.75 in 2017-03-17 Weight 221.6 lbs 2017-03-17 Temperature 98.5 degrees Fahrenheit 2017-03-17 Heart Rate 86 bpm 2017-03-17 Respiratory Rate 20 2017-03-17 BMI 34.96 kg/m2 2017-03-17 Blood pressure systolic 126 mmHg 2017-03-17 Blood pressure diastolic 74 mmHg 2017-03-17 MEDICATIONS No Known Medications RESULTS No Results PROCEDURES No Known procedures INSTRUCTIONS MEDICATIONS ADMINISTERED No Known Medications
--- OUTSIDE RECORDS SUMMARY | 2017-11-28 11:23 | XMS REPORT ---
Author Author ERYN STANFORD Organization [facility] Address [address] [place] [address] Care Team Providers Care Housefellow Name Role Phone ERYN STANFORD Unavailable PROBLEMS Unknown Problems ALLERGIES Substance Reaction Event Type Date Status Sulfa drugs Unknown Non Drug Allergy Mar, Active SOCIAL HISTORY Never Assessed PLAN OF CARE Activity Details Follow Up prn Reason: VITAL SIGNS Height 66.75 in 2016-03-24 Weight 206.4 lbs 2016-03-24 Temperature 99.0 degrees Fahrenheit 2016-03-24 Heart Rate 84 bpm 2016-03-24 Respiratory Rate 18 2016-03-24 BMI 32.57 kg/m2 2016-03-24 Blood pressure systolic 110 mmHg 2016-03-24 Blood pressure diastolic 72 mmHg 2016-03-24 MEDICATIONS Medication Instructions Dosage Frequency Start Date End Date Duration Status Azithromycin 250 MG Orally Once a day 2 tablets on the first day, then 1 tablet daily for 4 days 24h Mar, Mar, 5 day(s) Active Multivitamin by Oral route Aug, Active RESULTS No Results PROCEDURES No Known procedures IMMUNIZATIONS No Known Immunizations
--- OUTSIDE RECORDS SUMMARY | 2017-11-28 11:23 | XMS REPORT ---
Author Author CRISTINA MARYBEL [facility] Address [address] [place] [address] Care Team Providers Care Pulling Unit Floorhand Name Role Phone DOE EVANSO Unavailable PROBLEMS Unknown Problems ALLERGIES Substance Reaction Event Type Date Status Sulfa drugs Unknown Non Drug Allergy September, Active ENCOUNTERS Encounter Location Date Diagnosis [facility] [id number] [place] [address]140 Mar, Viral gastroenteritis A08.4 [facility] [id number] [place] [address] 17875 -8736 Feb, Viral gastroenteritis A08.4 [facility] [id number] [place] [id number] Oct, Dental caries K02.9 [id number] [place] [id number] September, Dental examination Z01.20 [facility] [id number] [place] [address] 80438 -8843 May, Acute upper respiratory infection, unspecified J06.9 and Sore throat J02.9 [facility] [id number] [place] [address] 77640 -8952 Mar, Acute non-recurrent frontal sinusitis J01.10 [facility] [id number] [place] [address] 73267- 7655 28 Jan, 2016 Dental caries K02.9 [facility] [id number] [place] [address] 54370- 8420 19 Jan, 2016 Dental examination Z01.20 [facility] [address] [address] 14 Aug, 2014 [facility] [address] [id number] [place] [address] 5708 Aug, [facility] [place] [facility] [address] [id number] [place] [address]- 7963 Feb, [facility] [address] [id number] [place] [address]- 8696 Feb, [facility] [address] [id number] [place] [address]- 7792 September, [facility] [address] [id number] [place] [address]- 3668 Jul, [facility] [place] [facility] [address] [id number] [place] [address]- 5946 Jul, [facility] [address] [id number] [place] [address]- 3265 Jun, [facility] [place] [facility] [address] [id number] [place] [address]- 1927 Jun, [facility] [address] [id number] [place] [address]- 7829 May, [facility] [place] [facility] [address] [id number] [place] [address]- 6020 May, [facility] [address] [id number] [place] [address]- 6114 Apr, [facility] [place] [facility] [address] [id number] [place] [address]- 6979 Apr, [facility] [place] [facility] [address] [id number] [place] [address]- 6801 Apr, [facility] [place] [facility] [address] [id number] [place] [address]- 0983 Apr, [facility] [place] [facility] [address] [id number] [place] [address]- 6265 Apr, [facility] [place] [facility] [address] [id number] [place] [address]- 2546 Apr, [facility] [place] [facility] [address] [id number] [place] [address]- 2546 Feb, [facility] [place] [facility] [address] [id number] [place] [address]- 2546 Jan, [facility] [place] [facility] [address] [id number] [place] [address]- 2546 04 Jan, 2012 [facility] [place] [facility] [address] [id number] [place] [address]- 2546 Nov, [facility] [place] [facility] [address] [id number] [place] [address]- 2546 Nov, [facility] [place] [facility] [address] [id number] [place] [address]- 2546 Oct, [facility] [place] [facility] [address] [id number] [place] [address]- 2546 Oct, [facility] [place] [facility] [address] [id number] [place] [address]- 2546 September, [facility] [place] [facility] [address] [id number] [place] [address]- 2546 Aug, [facility] [place] [facility] [address] [id number] [place] [address]- 2546 Jul, [facility] [place] [facility] [address] [id number] [place] [address]- 2546 Jun, [facility] [place] [facility] [address] [id number] [place] [address]- 2546 Apr, [facility] [place] [facility] [address] [id number] [place] [address]- 2546 Apr, [facility] [place] [facility] [address] [id number] [place] [address]- 2546 Feb, [facility] [place] [facility] [address] [id number] [place] [address]- 2546 Nov, [facility] [address] [facility] [id number] [place] [address]- 2546 Jun, [facility] [address] [facility] [id number] [address]- 2546 Apr, [facility] [address] [facility] [id number], [place] [address]- 2546 Feb, IMMUNIZATIONS No Known Immunizations SOCIAL HISTORY Never Assessed REASON FOR VISIT ELI PLAN OF CARE Activity Details Follow Up prn Reason:TE #19 VITAL SIGNS Blood pressure systolic 123 mmHg 2016-10-08 Blood pressure diastolic 79 mmHg 2016-10-08 MEDICATIONS Medication Instructions Dosage Frequency Start Date End Date Duration Status Ibuprofen Active RESULTS No Results PROCEDURES Procedure Date Ordered Result Body Site LTD ORAL EVALUATION - PROBLEM FOCUS October 08, 2016 INTRAORL-PERIAPICAL 1 FILM [id number] October 08, 2016 BITEWING - SINGLE FILM October 08, 2016 INSTRUCTIONS MEDICATIONS ADMINISTERED No Known Medications
--- OUTSIDE RECORDS SUMMARY | 2017-11-28 11:23 | XMS REPORT ---
Author Author STANFORDERYN Fragoso Organization [facility] Address [address] [place] [address] Care Team Providers Care Chief Enterprise Architect Name Role Phone ERYN STANFORD Unavailable PROBLEMS Unknown Problems ALLERGIES Substance Reaction Event Type Date Status Sulfa drugs Unknown Non Drug Allergy Feb, Active ENCOUNTERS Encounter Location Date Diagnosis [facility] [id number] [place] [address]67 -5077 Mar, Viral gastroenteritis A08.4 [facility] [id number] [place] [address] 77748 -1090 Feb, Viral gastroenteritis A08.[address] [id number] [id number] Oct, Dental caries K02.9 [address] [place] [id number] September, Dental examination Z01.20 [facility] [id number] [place] [address] 82820 -2932 May, Acute upper respiratory infection, unspecified J06.9 and Sore throat J02.9 [facility] [id number] [place] [address] 56447 -5690 Mar, Acute non-recurrent frontal sinusitis J01.10 [facility] [id number] [place] [address] 88334- 5082 28 Jan, 2016 Dental caries K02.9 [facility] [id number] [place] [address] 95604- 0425 19 Jan, 2016 Dental examination Z01.20 [facility] [id number] [place] [address] 15337- 6539 14 Aug, 2014 [facility] [address] [id number] [place] [address]- 2340 Aug, [facility] [place] [facility] [address] [id number] [place] [address]- 7441 Feb, [facility] [place] [facility] [address] [id number] [place] [address]- 3660 Feb, [facility] [place] [facility] [address] [id number] [place] [address]- 9511 September, [facility] [place] [facility] [address] [id number] [place] [address]- 0927 Jul, [facility] [place] [facility] [address] [id number] [place] [address]- 9416 Jul, [facility] [place] [facility] [address] [facility] [id number] [place] [address]- 7507 Jun, [facility] [place] [facility] [address] [id number] [place] [address]- 7607 Jun, [facility] [place] [facility] [address] [id number] [place] [address]- 4600 May, [facility] [place] [facility] [address] [id number] [place] [address]- 5150 May, [facility] [place] [facility] [address] [id number] [place] [address]- 2243 Apr, [facility] [place] [facility] [address] [id number] [place] [address]- 3649 Apr, [facility] [place] [facility] [address] [id number] [place] [address]- 0652 Apr, [facility] [place] [facility] [address] [id number] [place] [address]- 6352 Apr, [facility] [place] [facility] [address] [facility] [id number] [place] [address]- 1876 Apr, [facility] [place] [facility] [address] [id number] [place] [address] 2546 06 Apr, 2012 [facility] [address] [id number] [place] [address]- 2506 Feb, [facility] [place] [facility] [address] [id number] [place] [address] 2546 17 Jan, 2012 [facility] [address] [id number] [place] [address]- 2546 04 Jan, 2012 [facility] [place] [facility] [address] [id number] [place] [address]- 2546 Nov, [facility] [address] [id number] [place] [address]- 7026 Nov, [facility] [address] [id number] [place] [address]- 2546 Oct, [facility] [address] [id number] [place] [address]- 7409 Oct, [facility] [address] [id number] [place] [address]- 8658 September, [facility] [address] [id number] [place] [address]- 4416 Aug, [facility] [address] [id number] [place] [address]- 8476 Jul, [facility] [address] [id number] [place] [address]- 6582 Jun, [facility] [address] [id number] [place] [address]- 9448 Apr, [facility] [place] [facility] [address] [id number] [place] [address]- 4880 Apr, [facility] [place] [facility] [address] [id number] [place] [address] 2546 Feb, [facility] [place] [facility] [address] [id number] [place] [address]- 7176 Nov, [facility] [address] [facility] [id number] [place] [address] 2546 Jun, [facility] [address] [facility] [id number] [place] [address] 2546 Apr, [facility] [address] [facility] [id number] [place] [address] 2546 Feb, IMMUNIZATIONS No Known Immunizations SOCIAL HISTORY Never Assessed REASON FOR VISIT N/V/D since friday. pt has missed work because she has been so sick. [email or web address] PLAN OF CARE Activity Details Follow Up prn Reason: VITAL SIGNS Height 66.75 in 2017-03-10 Weight 226.8 lbs 2017-03-10 Temperature 98.4 degrees Fahrenheit 2017-03-10 Heart Rate 92 bpm 2017-03-10 Respiratory Rate 20 2017-03-10 BMI 35.78 kg/m2 2017-03-10 Blood pressure systolic 118 mmHg 2017-03-10 Blood pressure diastolic 68 mmHg 2017-03-10 MEDICATIONS Medication Instructions Dosage Frequency Start Date End Date Duration Status Xanax 1 mg 1 tablet by Oral route 3 times per dayPRNanxiety. Must last 30 days - no early refills. Must keep 07/07/12 appt for additional refills May, Not-Taking Multivitamin by Oral route Aug, Not-Taking Paxil 10 mg 1 tablet by Oral route 1 time per day Jul, Not-Taking Tylenol with Codeine #3 300-30 MG Orally every 6 hrs 1 tablet as needed 6h 4 days Not-Taking Amoxicillin 500 MG Orally 4 times daily 1 capsule 7 days Not- Taking Ibuprofen Not-Taking Bentyl 20 mg Orally 3 times a day 1 tablet 8h Feb, Mar, 07 days Active Ondansetron 4 MG Orally every 8 hrs 1 tablet on the tongue and allow to dissolve 8h Feb, 07 days Active RESULTS No Results PROCEDURES No Known procedures INSTRUCTIONS MEDICATIONS ADMINISTERED No Known Medications
--- OUTSIDE RECORDS SUMMARY | 2017-11-28 11:23 | XMS REPORT ---
Author Author CASH PARK [facility] Address [address] [place] [address] Care Team Providers Care Multi Skilled Operator Name Role Phone CASH PARK Unavailable PROBLEMS Unknown Problems ALLERGIES Substance Reaction Event Type Date Status Sulfa drugs Unknown Non Drug Allergy May, Active SOCIAL HISTORY No smoking Hx information available PLAN OF CARE VITAL SIGNS Height 66.75 in 2016-05-22 Weight 217.2 lbs 2016-05-22 Temperature 97.5 degrees Fahrenheit 2016-05-22 Heart Rate 100 bpm 2016-05-22 Respiratory Rate 20 2016-05-22 BMI 34.27 kg/m2 2016-05-22 Blood pressure systolic 112 mmHg 2016-05-22 Blood pressure diastolic 66 mmHg 2016-05-22 MEDICATIONS Medication Instructions Dosage Frequency Start Date End Date Duration Status Cetirizine HCl 10 mg Orally Once a day 1 tablet 24h May, Aug, 30 day(s) Active Multivitamin by Oral route Aug, Active RESULTS Name Result Date Reference Range STREP A (IN HOUSE) 2016-05-22 STREP A negative Control + Lot # [id number] Exp date [id number] PROCEDURES Procedure Date Ordered Related Diagnosis Body Site Office Visit, Est Pt., Level 3 May 22, 2016 STREP A ASSAY W/OPTIC May 22, 2016 IMMUNIZATIONS No Known Immunizations
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
--- OUTSIDE RECORDS SUMMARY | 2017-11-28 11:24 | XMS REPORT ---
Author Author CRISTINA MARYBEL [facility] Address [address] [place] [address] Care Team Providers Care Silviculture Teacher Name Role Phone DOE EVANSO Unavailable PROBLEMS Unknown Problems ALLERGIES Substance Reaction Event Type Date Status Sulfa drugs Unknown Non Drug Allergy Oct, Active ENCOUNTERS Encounter Location Date Diagnosis [facility] [id number] [place] [phone] Mar, Viral gastroenteritis A08.4 [facility] [id number] [place] [phone] Feb, Viral gastroenteritis A08.4 [facility] [id number] [place] [phone] Oct, Dental caries [address]02.[id number] [place] [phone] September, Dental examination Z01.20 [facility] [id number] [place] [phone] May, Acute upper respiratory infection, unspecified J06.9 and Sore throat J02.9 [facility] [id number] [place] [phone] Mar, Acute non-recurrent frontal sinusitis J01.10 [facility] [id number] [place] [address] 28 Jan, 2016 Dental caries K02.9 [facility] [id number] [place] [address] 19 Jan, 2016 Dental examination Z01.20 [facility] [address] [address] 14 Aug, 2014 [facility] [address] [id number] [place] [address] Aug, [facility] [place] [facility] [address] [id number] [place] [address] Feb, [facility] [address] [id number] [place] [address] Feb, [facility] [address] [id number] [place] [address] September, [facility] [address] [id number] [place] [address] Jul, [facility] [place] [facility] [address] [id number] [place] [address] Jul, [facility] [address] [id number] [place] [address] Jun, [facility] [place] [facility] [address] [id number] [place] [address] Jun, [facility] [address] [id number] [place] [address] May, [facility] [place] [facility] [address] [id number] [place] [address] May, [facility] [address] [id number] [place] [address] Apr, [facility] [place] [facility] [address] [id number] [place] [address] Apr, [facility] [place] [facility] [address] [id number] [place] [address] Apr, [facility] [place] [facility] [address] [id number] [place] [address] Apr, [facility] [place] [facility] [address] [id number] [place] [address] Apr, [facility] [place] [facility] [address] [id number] [place] [address] Apr, [facility] [place] [facility] [address] [id number] [place] [address] Feb, [facility] [place] [facility] [address] [id number] [place] [address] Jan, [facility] [place] [facility] [address] [id number] [place] [address] 04 Jan, 2012 [facility] [place] [facility] [address] [id number] [place] [address] Nov, [facility] [place] [facility] [address] [id number] [place] [address] Nov, [facility] [place] [facility] [address] [id number] [place] [address] Oct, [facility] [place] [facility] [address] [id number] [place] [address] Oct, [facility] [place] [facility] [address] [id number] [place] [address] September, [facility] [place] [facility] [address] [id number] [place] [address] Aug, [facility] [place] [facility] [address] [id number] [place] [address] Jul, [facility] [place] [facility] [address] [id number] [place] [address] Jun, [facility] [place] [facility] [address] [id number] [place] [address] Apr, [facility] [place] [facility] [address] [id number] [place] [address] Apr, [facility] [place] [facility] [address] [id number] [place] [address] Feb, [facility] [place] [facility] [address] [id number] [place] [address] Nov, [facility] [address] [facility] [id number] [place] [address] Jun, [facility] [address] [facility] [id number] [address] Apr, [facility] [address] [facility] [id number], [place] [address] Feb, IMMUNIZATIONS No Known Immunizations SOCIAL HISTORY Never Assessed REASON FOR VISIT extraction PLAN OF CARE Activity Details Follow Up prn Reason:juana/hygiene VITAL SIGNS Height 66.75 in 2016-11-04 Blood pressure systolic 110 mmHg 2016-11-04 Blood pressure diastolic 70 mmHg 2016-11-04 MEDICATIONS Medication Instructions Dosage Frequency Start Date End Date Duration Status Motrin IB 800 Orally Q6H PRN 1 P.O. 3 Nov, 2016 7 days Active RESULTS No Results PROCEDURES Procedure Date Ordered Result Body Site SURG REMOVAL ERUPTED TOOTH November 04, 2016 INSTRUCTIONS MEDICATIONS ADMINISTERED No Known Medications
== END 2017-11-28 11:32 | disposition left against medical advice (07) ==
LOC: EDUNIT# 11:15 → ER 11:18
DX: O9A.211 Injury, poisoning and certain other consequences of external causes complicating pregnancy, first trimester (principal); R10.9 Unspecified abdominal pain; Z3A.11 11 weeks gestation of pregnancy; V49.9XXA Car occupant (driver) (passenger) injured in unspecified traffic accident, initial encounter

== ENCOUNTER 2018-01-30 09:02 | Emergency (ER) | payer MEDICAID ==
[~2018-01-30] VITALS: Ht 170.2 cm; Wt 95.3 kg
--- OUTSIDE RECORDS SUMMARY | 2018-01-30 09:14 | XMS REPORT | Clinical Summary ---
Author Author [facility] Organization [facility] Address Unknown Phone Unavailable Care Team Providers Care Fight Manager Name Role Phone PP Unavailable Allergies Active [...] (1 - Tdap) CERVICAL CANCER SCREENING 2011 Results Not on filefrom Last 3 Months
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
[2018-01-30 10:11] VITALS: BP 0/0
== END 2018-01-30 09:54 | disposition left against medical advice (07) ==
LOC: EDUNIT# 09:02 → ER 09:03
DX: O26.892 Other specified pregnancy related conditions, second trimester (principal); R10.2 Pelvic and perineal pain; O99.342 Other mental disorders complicating pregnancy, second trimester; F41.9 Anxiety disorder, unspecified; F32.9 Major depressive disorder, single episode, unspecified; O99.332 Smoking (tobacco) complicating pregnancy, second trimester; F17.210 Nicotine dependence, cigarettes, uncomplicated; Z3A.21 21 weeks gestation of pregnancy
CPT/HCPCS: 36430

== ENCOUNTER → 2020-06-16 | Outpatient (CLI) | payer MEDICAID ==
--- NOTE | 2020-06-16 16:23 | Diagnostic Imaging Report ---
INDICATION: Right breast lump. Sonographic interrogation of the right breast was performed at the area of palpable lump. This corresponds to the 3-6 o'clock location. No solid or cystic mass is detected. No sonographic abnormality is identified. IMPRESSION: BI-RADS Category 1 No sonographic abnormality is seen. Continued close clinical and self breast exam is recommended to confirm stability of the palpable abnormality. ACR BI-RADS Category 1: Negative. Result letter will be mailed to the patient. Note: At least 10% of breast cancer is not imaged by mammography. Dictated by: Dictated on workstation # [id number]
== END ==
LOC: RAD 13:50
PROVIDERS: ATTEND Nurse Practitioner Family
DX: N63.14 Unspecified lump in the right breast, lower inner quadrant (principal)